=== PATIENT | male | born 1990 | race African-American/Black ===

== ENCOUNTER 2016-10-31 20:58 | Inpatient (IN) | payer BC, OTHER, MEDICAID ==
[~2016-10-31] VITALS: Ht 182.9 cm; Wt 132.0 kg
[2016-10-31 21:41] LABS: BASOPHIL % 0.8 % (0-2); PLATELET COUNT 255 x10^3mcL (130-400); RED CELL DISTRIBUTION WIDTH 14.5 % (11.5-14.5)
[2016-10-31 21:50] LABS: AMPHETAMINE QUAL UR NONE DETECTED (NEG <=1000)
[2016-10-31 21:57] LABS: CALCIUM 9.1 mg/dL (8.5-10.1); CARBON DIOXIDE 32.6 mmol/L (21-32); CHLORIDE SERUM 105 mmol/L (98-107); GFR1 > 60 mL/min; GLUCOSE SERUM 89 mg/dL (74-106); POTASSIUM SERUM 3.8 mmol/L (3.5-5.1); SODIUM SERUM 142 mmol/L (136-145)
[2016-10-31 22:10] LABS: ALBUMIN 3.7 g/dL (3.4-5.0); ALKALINE PHOSPHATASE 54 U/L (46-116); ALT/SGPT 40 U/L (16-63); AST/SGOT 38 U/L (15-37); T4(THYROXINE) 5.2 ug/dL (4.7-13.3)
[2016-10-31] MEDS ORDERED: GABAPENTIN600 M1 PO (23:25)
[2016-10-31] MEDS ORDERED: TRAZODONE100 MG PO (23:26)
[2016-10-31] MEDS ORDERED: RISPERIDONE4 M2 PO (23:26)
[2016-10-31] MEDS ORDERED: LITHIUM CARBON300 MG PO (23:27)
[2016-10-31 23:42] LABS: FREE T4 0.8 ng/dL (0.76-1.46); FREE THYROXINE INDEX 1.9 ug/dL (1.4-4.5); T3 TOTAL 1.27 ng/mL; T4(THYROXINE) 5.9 ug/dL (4.7-13.3)
[2016-11-01 00:41] LABS: CHOLESTEROL/HDL RATIO 3.8
[2016-11-01 01:28] VITALS: BP 133/62
[2016-11-01 05:56] VITALS: BP 122/55
[2016-11-01 10:11] LABS: BASOPHIL % 0.5 % (0-2); PLATELET COUNT 246 x10^3mcL (130-400); RED CELL DISTRIBUTION WIDTH 14.4 % (11.5-14.5)
[2016-11-01 10:27] LABS: CALCIUM 8.5 mg/dL (8.5-10.1); CARBON DIOXIDE 28.7 mmol/L (21-32); CREATININE SERUM 1.4 mg/dL (0.7-1.3); GFR1 > 60 mL/min; GLUCOSE SERUM 160 mg/dL (74-106)
[2016-11-01 10:31] LABS: MAGNESIUM 1.7 mg/dL (1.8-2.4); PHOSPHOROUS 3.9 mg/dL (2.5-4.9)
[2016-11-01 10:52] LABS: CHLORIDE SERUM 107 mmol/L (98-107); POTASSIUM SERUM 3.9 mmol/L (3.5-5.1); SODIUM SERUM 143 mmol/L (136-145)
[2016-11-01 11:06] LABS: microscopic required? NO
[2016-11-01 11:07] VITALS: BP 122/50
[2016-11-01 12:11] LABS: UA SPECIFIC GRAVITY 1.015 (1.005-1.035); urine erythrocyte NEGATIVE (NEGATIVE)
[2016-11-01 17:51] VITALS: BP 131/84
[2016-11-02 06:49] LABS: BASOPHIL % 0.7 % (0-2); PLATELET COUNT 250 x10^3mcL (130-400); RED CELL DISTRIBUTION WIDTH 14.2 % (11.5-14.5)
[2016-11-02 06:59] LABS: CALCIUM 8.3 mg/dL (8.5-10.1); CARBON DIOXIDE 27.7 mmol/L (21-32); CHLORIDE SERUM 109 mmol/L (98-107); CREATININE SERUM 1.1 mg/dL (0.7-1.3); GFR1 > 60 mL/min; GLUCOSE SERUM 80 mg/dL (74-106); MAGNESIUM 2.1 mg/dL (1.8-2.4); POTASSIUM SERUM 4.1 mmol/L (3.5-5.1); SODIUM SERUM 144 mmol/L (136-145)
[2016-11-02 07:57] VITALS: BP 108/56
[2016-11-02 16:00] VITALS: BP 137/69
[2016-11-02 19:44] VITALS: BP 141/73
[2016-11-03 06:16] VITALS: BP 118/46
[2016-11-03 06:20] LABS: BASOPHIL % 0.6 % (0-2); PLATELET COUNT 234 x10^3mcL (130-400); RED CELL DISTRIBUTION WIDTH 13.8 % (11.5-14.5)
[2016-11-03 06:52] LABS: CALCIUM 8.5 mg/dL (8.5-10.1); CARBON DIOXIDE 27.3 mmol/L (21-32); CHLORIDE SERUM 108 mmol/L (98-107); CREATININE SERUM 1.1 mg/dL (0.7-1.3); GFR1 > 60 mL/min; GLUCOSE SERUM 74 mg/dL (74-106); SODIUM SERUM 142 mmol/L (136-145)
[2016-11-03] MEDS ORDERED: LITHIUM CARBON300 MG PO (12:09)
[2016-11-03] MEDS ORDERED: GABAPENTIN600 M1 PO (12:10)
[2016-11-03] MEDS ORDERED: TRAZODONE100 MG PO (12:11)
[2016-11-03] MEDS ORDERED: RISPERDAL4 M1 PO (12:12)
[2016-11-03 18:03] VITALS: BP 139/65
[2016-11-03 19:54] VITALS: BP 139/65
== END 2016-11-03 20:57 | disposition home or self-care (01) | DRG 917 ==
LOC: ED 20:58 → DU 11-01 01:00 → MU 11-01 01:00 → DU 11-01 01:17 → MU 11-01 18:05
PROVIDERS: Emergency Medicine; Family Medicine; ADMIT Family Medicine
DX: T43.611A Poisoning by caffeine, accidental (unintentional), initial encounter (principal); K71.11 Toxic liver disease with hepatic necrosis, with coma; G92 Toxic encephalopathy; N17.0 Acute kidney failure with tubular necrosis; F31.30 Bipolar disorder, current episode depressed, mild or moderate severity, unspecified; F84.0 Autistic disorder; R73.03 Prediabetes; Y92.009 Unspecified place in unspecified non-institutional (private) residence as the place of occurrence of the external cause; K72.90 Hepatic failure, unspecified without coma; E87.8 Other disorders of electrolyte and fluid balance, not elsewhere classified; D64.9 Anemia, unspecified; E66.9 Obesity, unspecified; Z68.39 Body mass index [BMI] 39.0-39.9, adult
CPT/HCPCS: 80307; 82962; 83880; 84439; G0480; J3475; J7030; Q0092